=== PATIENT | male | born 1960 | race Two or more races ===

== ENCOUNTER → 2016-12-10 | Outpatient (CLI) | payer OTHER ==
[~2016-12-10] MED LIST: METFORMIN HCL1000 MG PO; PERCOCET 5/31 TABLET PO
== END | disposition home or self-care (01) ==
LOC: AMB 08:41
DX: D23.39 Other benign neoplasm of skin of other parts of face (principal); L72.0 Epidermal cyst
CPT/HCPCS: 88304; 88305